=== PATIENT | male | born 1970 | race Caucasian/White ===

== ENCOUNTER 2023-12-09 16:43 | Inpatient (IN) | payer MEDICARE, MEDICAID ==
[~2023-12-09] VITALS: Ht 157.5 cm; Wt 90.7 kg
[2023-12-09] MEDS ORDERED: HALOPERIDOL 5 MG TABLET PO PRN (17:15)
[2023-12-09 18:51] LABS: GLUCOMETER DEV NAME(LOC) POC.BV; POC SARS-COV2 AG, FIA NEGATIVE (NEGATIVE)
[2023-12-09] MEDS: LORazepam 2 MG TABLET PO PRN (20:59)
[2023-12-09] MEDS ORDERED: BENZOCAINE/MENTHOL LOZENGE PO PRN (21:15)
[2023-12-09] MEDS ORDERED: ACETAMINOPHEN 325 MG TABLET PO PRN (21:15)
[2023-12-09] MEDS ORDERED: ONDANSETRON HCL 4 MG TABLET PO PRN (21:15)
[2023-12-09] MEDS ORDERED: MAG HYDROX/ALUMINUM HYD/SIMETH ES 30 ML SUSPENSION UDCUP PO PRN (21:15)
[2023-12-09] MEDS ORDERED: LOPERAMIDE HCL 2 MG CAPSULE PO PRN (21:15)
[2023-12-09] MEDS ORDERED: OMEPRAZOLE 20 MG CAPSULE PO PRN (21:15)
[2023-12-09] MEDS ORDERED: PETROLATUM,WHITE 28 GM JELLY TP PRN (21:15)
[2023-12-09] MEDS ORDERED: DOCUSATE SODIUM 100 MG CAPSULE PO PRN (21:15)
[2023-12-09] MEDS ORDERED: CloNIDine HCL 0.1 MG TABLET PO PRN (21:15)
[2023-12-09] MEDS ORDERED: BACITRACIN 28 GM OINTMENT TP PRN (21:15)
[2023-12-09] MEDS ORDERED: ALBUTEROL SULFATE HFA 90 MCG/PUFF 8 GM INHALER IH PRN (21:15)
[2023-12-09] MEDS ORDERED: IBUPROFEN 600 MG TABLET PO PRN (21:15)
[2023-12-09] MEDS ORDERED: MAGNESIUM HYDROXIDE SUSPENSION 30 ML UDCUP PO PRN (21:15)
[2023-12-09 21:25] VITALS: BP 125/71; PULSE 94; RESP 18; TEMP 98.4; O2SAT 99
[2023-12-09] MEDS: ZOLPIDEM TARTRATE 10 MG TABLET PO PRN (21:43)
[2023-12-09 22:06] LABS: GLUCOMETER DEV NAME(LOC) BV3N.; GLUCOSE,POINT OF CARE 111 MG/DL (70-110)
[2023-12-10 08:30] LABS: BASOPHILS % (AUTO) 0.5 % (0.0-2.0); EOSINOPHILS % (AUTO) 3.4 % (1.0-6.0); HEMATOCRIT 46.2 % (41-53); HEMOGLOBIN 15.1 g/dL (13.5-17.5); LYMPHOCYTES # (AUTO) 3.7 K/uL (1.0-4.8); LYMPHOCYTES % (AUTO) 31.4 % (22.0-44.0); MEAN CORPUSCULAR HEMOGLOBIN 29.2 pg (26.0-34.0); MEAN CORPUSCULAR HGB CONC 32.8 G/dL (31.0-37.0); MEAN CORPUSCULAR VOLUME 89 fL (80-100); MONOCYTES # (AUTO) 1.4 K/uL (0.1-1.0); MONOCYTES % (AUTO) 11.5 % (2.0-9.0); NEUTROPHILS # (AUTO) 6.3 K/uL (1.8-7.7); NEUTROPHILS % (AUTO) 53.2 % (40.0-70.0); PLATELET COUNT (AUTO) 374 K/uL (150-450); RED BLOOD CELL COUNT(AUTO) 5.18 MIL/uL (4.50-5.90); RED CELL DISTRIBUTION WIDTH 13.9 % (11.5-14.5); WHITE BLOOD COUNT (AUTO) 11.8 K/uL (4.5-11.0)
[2023-12-10 08:37] LABS: HEMOGLOBIN A1C 5.4 % (3.8-5.6)
[2023-12-10 09:01] LABS: BILIRUBIN,TOTAL 1.4 mg/dL (0.1-1.0); CALCIUM, TOTAL 10.2 mg/dL (8.8-10.5); CHOL/HDL RATIO 2.6 (4.2-7.3); CREATININE 1.27 mg/dL (0.60-1.30); FREE T4 (FREE THYROXINE) 0.93 ng/dL (0.76-1.46); THYROID STIMULATING HORMONE 1.81 uIU/mL (0.36-3.74); TOTAL PROTEIN, SERUM 8.1 g/dL (6.4-8.2)
[2023-12-10 09:08] VITALS: BP 125/68; PULSE 102; RESP 14; TEMP 97.2; O2SAT 95
[2023-12-10] MEDS: LURASIDONE HCL 80 MG TABLET PO SCH (16:26)
[2023-12-10 20:26] VITALS: BP 127/71; PULSE 97; RESP 18; TEMP 97.7
[2023-12-11 08:22] VITALS: BP 143/65; PULSE 96; RESP 17; TEMP 97.8; O2SAT 96
[2023-12-11 20:41] VITALS: BP 139/88; PULSE 97; TEMP 98.4; O2SAT 97
[2023-12-12 08:03] VITALS: BP 136/80; PULSE 92; RESP 18; TEMP 97.8; O2SAT 95
[2023-12-12] MEDS ORDERED: LURA80TA2 PO (12:33)
== END 2023-12-12 14:33 | disposition home or self-care (01) | DRG 885 ==
LOC: B3A 20:00
PROVIDERS: ADMIT Psychiatry & Neurology Psychiatry; ATTEND Psychiatry & Neurology Psychiatry
PROC: GZHZZZZ Group Psychotherapy (ICD-10-PCS; principal; 2023-12-09)
PROC: GZ56ZZZ Individual Psychotherapy, Supportive (ICD-10-PCS; 2023-12-09)
DX: F25.9 Schizoaffective disorder, unspecified (principal); F06.30 Mood disorder due to known physiological condition, unspecified; F41.9 Anxiety disorder, unspecified; E66.9 Obesity, unspecified; G47.00 Insomnia, unspecified; K59.00 Constipation, unspecified; Z20.822 Contact with and (suspected) exposure to COVID-19; Z72.0 Tobacco use; Z79.899 Other long term (current) drug therapy; Z68.36 Body mass index [BMI] 36.0-36.9, adult; Z55.9 Problems related to education and literacy, unspecified; Z59.9 Problem related to housing and economic circumstances, unspecified; Z63.9 Problem related to primary support group, unspecified; Z65.3 Problems related to other legal circumstances
CPT/HCPCS: 80053; 80061; 82962; 83036; 84439; 84443; 85025